=== PATIENT | male | born 1940 | race Caucasian/White ===

== ENCOUNTER 2021-08-03 09:38 | Inpatient (IN) ==
[2021-08-03] MEDS ORDERED: Naloxone 0.4 MG/ML INJ IVP PRN (13:28)
[2021-08-03] MEDS ORDERED: Perflutren Lipid Microsphere 1.3 ML in 0.9 % Sodium Chloride 8.7 ML IVP PRN (13:28)
[2021-08-03] MEDS ORDERED: Melatonin 3 MG TABLET PO PRN (13:28)
[2021-08-03] MEDS ORDERED: *HR* Atropine Sulfate 1 MG/10 ML SYRINGE IVP PRN (14:42)
[2021-08-03 15:12] LABS: Basophils % 0.2 %; Eosinophils % 0.1 %; Hematocrit 45.4 % (37.5-50.1); Hemoglobin 14.2 g/dL (12.9-16.9); Immature Granulocytes % 0.5 % (0-4); Lymphocytes # 1.1 K/mcL (0.6-4.6); Lymphocytes % 5.7 %; Mean Corpuscular HGB Conc 31.3 g/dL (31.6-35.5); Mean Corpuscular Hemoglobin 28.1 pg (28.0-33.3); Mean Corpuscular Volume 89.7 fL (83.0-100.0); Mean Platelet Volume 10.2 fL (9.4-12.4); Monocytes # 1.2 K/mcL (0.0-1.3); Platelet Count 230 K/mcL (140-400); Red Blood Count 5.06 M/mcL (4.19-5.50); Red Cell Distribution Width 14.1 % (11.5-14.5); Segmented Neutrophils % 87.5 %; White Blood Count 19.4 K/mcL (4.3-11.1)
[2021-08-03 15:14] LABS: Bacteria,Urine Few per hpf (None-Few); Bilirubin,Urine Small (Negative); Blood,Urine Moderate (Negative); Clarity,Urine Turbid (Clear); Color,Urine Yellow (Yellow); Glucose,Urine (UA) Normal (Normal); Hyaline Casts,Urine Few per lpf (None Seen); Ketones,Urine Negative (Negative); Leukocyte Esterase,Urine Negative (Negative); Mucus,Urine Few per lpf (None-Few); Nitrite,Urine Negative (Negative); PH,Urine 5.5 pH Units (5.0-8.0); Protein,Urine Trace mg/dL (Neg-Trace); RBC,Urine 30-50 per hpf (0-3); Specific Gravity,Urine 1.023 (1.010-1.025)
[2021-08-03 15:21] LABS: INR 1.7
[2021-08-03 15:24] LABS: Activated Partial Thrombo Time 39.1 Seconds (26.0-36.0)
[2021-08-03 15:32] LABS: Calcium 8.9 mg/dL (8.6-10.3); Chol/HDL Ratio 4.1 (0-4.9); Magnesium 2.4 mg/dL (1.6-2.6); Phosphorous 3.5 mg/dL (2.7-4.5); Potassium 3.6 mEq/L (3.5-5.1); Troponin I 0.05 ng/mL (< 0.04)
[2021-08-03 16:39] LABS: Sodium, Urine 49.4 mEq/L
[2021-08-03] MEDS ORDERED: Dextrose Gel 15 GM/37.5 ML TUBE PO PRN ×2 (17:19)
[2021-08-03] MEDS ORDERED: D5% in Water 1,000 ML IVC PRN (17:19)
[2021-08-03] MEDS ORDERED: *HR* Dextrose 50 % in Water (Syg) 50 ML SYRINGE IVP PRN (17:19)
[2021-08-03] MEDS ORDERED: *HR* Heparin 5,000 UNIT/ML VIAL SQ SCH (17:30)
[2021-08-03] MEDS ORDERED: *HR* Heparin 5,000 UNIT/ML VIAL IVP PRN (17:34)
[2021-08-03] MEDS ORDERED: *HR* Heparin 5,000 UNIT/ML VIAL IVP ONE (17:34)
[2021-08-03] MEDS: Heparin 25,000UNIT/250ML 1/2NS 25,000 UNIT/250 ML IV.SOLN IVC SCH (18:17)
[2021-08-04 04:48] LABS: Albumin 2.7 g/dL (3.5-5.7); Albumin/Globulin Ratio 0.9 (1.1-2.2); Bilirubin,Direct 3.5 mg/dL (0.0-0.2); Bilirubin,Total 5.5 mg/dL (0.3-1.0); Globulin 3.1 g/dL (2.4-3.5); Total Protein 5.8 g/dL (6.4-8.9)
[2021-08-04] MEDS: Insulin LISPRO 300 UNITS/3 ML VIAL SUBQ SCH ×3 (08:00→17:43)
[2021-08-04 08:40] LABS: A.calcoaceticus-baumannii cplx Not Detected (Not Detect); Bacteroides fragilis by PCR Not Detected (Not Detect); CTX-M ESBL Gene Not Detected (Not Detect); Enterococcus faecalis by PCR Not Detected (Not Detect); Enterococcus faecium by PCR Not Detected (Not Detect); IMP Carbapenem-Resist Gene Not Detected (Not Detect); NDM Carbapenem-Resist Gene Not Detected (Not Detect); OXA-48-like Carbap-Resist Gene Not Detected (Not Detect); Staph epidermidis by PCR Not Detected (Not Detect); Staph lugdunensis by PCR Not Detected (Not Detect); Staphylococcus aureus by PCR Not Detected (Not Detect); Staphylococcus by PCR Not Detected (Not Detect); Streptococcus agalactiae(B)PCR Not Detected (Not Detect); Streptococcus by PCR Not Detected (Not Detect); Streptococcus pneumoniae PCR Not Detected (Not Detect); Streptococcus pyogenes (A) PCR Not Detected (Not Detect); VIM Carbapenem-Resist Gene Not Detected (Not Detect); blaKPC Carbapenem-Resist Gene Not Detected (Not Detect); mcr-1 Colistin-Resist Gene Not Detected (Not Detect)
[2021-08-04 08:41] LABS: Candida albicans by PCR Not Detected (Not Detect); Candida auris by PCR Not Detected (Not Detect); Candida glabrata by PCR Not Detected (Not Detect); Candida krusei by PCR Not Detected (Not Detect); Candida parapsilosis by PCR Not Detected (Not Detect); Candida tropicalis by PCR Not Detected (Not Detect); Crypto. neoformans/gattii PCR Not Detected (Not Detect); Enterobacter cloacae Cmplx PCR Not Detected (Not Detect); Escherichia coli by PCR DETECTED (Not Detect); Klebs. pneumoniae group by PCR Not Detected (Not Detect); Klebsiella aerogenes by PCR Not Detected (Not Detect); Klebsiella oxytoca by PCR Not Detected (Not Detect); Proteus by PCR Not Detected (Not Detect); Pseudomonas aeruginosa by PCR Not Detected (Not Detect); Salmonella species by PCR Not Detected (Not Detect); Serratia marcescens by PCR Not Detected (Not Detect); Stenotrophomonas maltophilia Not Detected (Not Detect)
[2021-08-04] MEDS ORDERED: Cefepime HCl 2,000 MG in 0.9 % Sodium Chloride 10 ML IVPB SCH (10:00)
[2021-08-04] MEDS: *HR* Heparin 5,000 UNIT/ML VIAL IVP PRN ×3 (11:24→23:02)
[2021-08-04 15:01] LABS: Basophils % 0.1 %; Eosinophils % 0.1 %; Hematocrit 42.5 % (37.5-50.1); Hemoglobin 13.5 g/dL (12.9-16.9); Immature Granulocytes % 0.7 % (0-4); Lymphocytes # 1.6 K/mcL (0.6-4.6); Mean Corpuscular HGB Conc 31.8 g/dL (31.6-35.5); Mean Corpuscular Hemoglobin 28.5 pg (28.0-33.3); Mean Corpuscular Volume 89.9 fL (83.0-100.0); Mean Platelet Volume 10.5 fL (9.4-12.4); Monocytes # 1.3 K/mcL (0.0-1.3); Monocytes % 6.6 %; Neutrophils # 16.4 K/mcL (1.6-8.9); Platelet Count 203 K/mcL (140-400); Red Blood Count 4.73 M/mcL (4.19-5.50); Red Cell Distribution Width 14.5 % (11.5-14.5); Segmented Neutrophils % 84.5 %; White Blood Count 19.4 K/mcL (4.3-11.1)
[2021-08-04 15:06] LABS: Estimated Average Glucose 151 mg/dl; Hemoglobin A1C 6.9 %
[2021-08-04 15:21] LABS: Calcium 8.7 mg/dL (8.6-10.3); Potassium 4.3 mEq/L (3.5-5.1)
[2021-08-04] MEDS: allopurinoL 300 MG TABLET PO SCH (15:45)
[2021-08-04] MEDS: Piperacillin/Tazobactam 3.375 GM in 0.9 % Sodium Chloride Mini Bag 100 ML IVPB SCH ×2 (15:46→23:02)
[2021-08-04 20:36] LABS: Heparin anti-factor XA UFH 0.12 IU/mL (0.30-0.70); INR 2.4; Prothrombin Time 26.4 Seconds (9.4-12.1)
[2021-08-05 03:14] LABS: VBG Ionized Calcium 1.12 mmol/L (1.15-1.35)
[2021-08-05 03:17] LABS: Basophils % 0.2 %; Eosinophils % 0.1 %; Hematocrit 40.8 % (37.5-50.1); Hemoglobin 12.9 g/dL (12.9-16.9); Immature Granulocytes % 0.7 % (0-4); Lymphocytes # 1.3 K/mcL (0.6-4.6); Lymphocytes % 6.8 %; Mean Corpuscular HGB Conc 31.6 g/dL (31.6-35.5); Mean Corpuscular Hemoglobin 28.4 pg (28.0-33.3); Mean Corpuscular Volume 89.7 fL (83.0-100.0); Mean Platelet Volume 10.3 fL (9.4-12.4); Monocytes # 1.4 K/mcL (0.0-1.3); Monocytes % 7.5 %; Platelet Count 192 K/mcL (140-400); Red Blood Count 4.55 M/mcL (4.19-5.50); Red Cell Distribution Width 14.5 % (11.5-14.5); Segmented Neutrophils % 84.7 %; White Blood Count 18.8 K/mcL (4.3-11.1)
[2021-08-05 03:25] LABS: Albumin 2.5 g/dL (3.5-5.7); Albumin/Globulin Ratio 0.8 (1.1-2.2); Bilirubin,Direct 3.6 mg/dL (0.0-0.2); Bilirubin,Indirect 1.8 mg/dL (0.0-1.0); Bilirubin,Total 5.4 mg/dL (0.3-1.0); Calcium 8.4 mg/dL (8.6-10.3); Globulin 3.2 g/dL (2.4-3.5); Magnesium 2.2 mg/dL (1.6-2.6); Potassium 4.1 mEq/L (3.5-5.1); Total Protein 5.7 g/dL (6.4-8.9)
[2021-08-05] MEDS: Heparin 25,000UNIT/250ML 1/2NS 25,000 UNIT/250 ML IV.SOLN IVC SCH (03:34)
[2021-08-05] MEDS: Piperacillin/Tazobactam 3.375 GM in 0.9 % Sodium Chloride Mini Bag 100 ML IVPB SCH ×2 (07:38→17:46)
[2021-08-05] MEDS: allopurinoL 300 MG TABLET PO SCH (07:38)
[2021-08-05] MEDS: Insulin LISPRO 300 UNITS/3 ML VIAL SUBQ SCH ×3 (08:00→17:20)
[2021-08-05] MEDS: hydrALAZINE 25 MG TABLET PO SCH ×2 (10:21→17:43)
[2021-08-05] MEDS ORDERED: *HR* Etomidate 40 MG/20 ML VIAL IVP ONE (14:24)
[2021-08-05] MEDS ORDERED: *HR* FentaNYL (PF) 100 MCG/2 ML VIAL ONE (14:25)
[2021-08-05] MEDS ORDERED: Lidocaine -MPF 2% 2 ML VIAL ONE (14:26)
[2021-08-05] MEDS ORDERED: Lidocaine HCL 4 ML Topical Solution (Laryng-O-Jet Kit Sterile Pak) TP ONE (14:37)
[2021-08-05] MEDS ORDERED: EPHEDrine 50 MG/ML VIAL ONE (15:00)
[2021-08-06] MEDS: Piperacillin/Tazobactam 3.375 GM in 0.9 % Sodium Chloride Mini Bag 100 ML IVPB SCH ×4 (00:19→23:43)
[2021-08-06] MEDS: hydrALAZINE 25 MG TABLET PO SCH ×4 (00:20→23:44)
[2021-08-06] MEDS: Heparin 25,000UNIT/250ML 1/2NS 25,000 UNIT/250 ML IV.SOLN IVC SCH ×2 (00:20→05:27)
[2021-08-06 01:00] LABS: Basophils % 0.2 %; Eosinophils % 0.2 %; Hematocrit 42.1 % (37.5-50.1); Hemoglobin 13.2 g/dL (12.9-16.9); Immature Granulocytes % 0.4 % (0-4); Lymphocytes # 1.8 K/mcL (0.6-4.6); Lymphocytes % 14.4 %; Mean Corpuscular HGB Conc 31.4 g/dL (31.6-35.5); Mean Corpuscular Hemoglobin 28.1 pg (28.0-33.3); Mean Corpuscular Volume 89.8 fL (83.0-100.0); Mean Platelet Volume 10.6 fL (9.4-12.4); Monocytes % 8.1 %; Neutrophils # 9.3 K/mcL (1.6-8.9); Platelet Count 200 K/mcL (140-400); Red Blood Count 4.69 M/mcL (4.19-5.50); Red Cell Distribution Width 14.6 % (11.5-14.5); Segmented Neutrophils % 76.7 %; White Blood Count 12.1 K/mcL (4.3-11.1)
[2021-08-06 02:15] LABS: Alanine Aminotransferase 60 Units/L (7-52); Albumin 2.5 g/dL (3.5-5.7); Albumin/Globulin Ratio 0.8 (1.1-2.2); Alkaline Phosphatase 344 Units/L (34-104); Aspartate Amino Transferase 48 Units/L (13-39); BUN/Creatinine Ratio 19 (6-26); Bilirubin,Total 4.1 mg/dL (0.3-1.0); Blood Urea Nitrogen 26 mg/dL (8-23); Calcium 8.5 mg/dL (8.6-10.3); Carbon Dioxide 29 mEq/L (23-29); Chloride 97 mEq/L (98-107); Globulin 3.2 g/dL (2.4-3.5); Glucose 95 mg/dL (70-105); Magnesium 2.2 mg/dL (1.6-2.6); Osmolality,Calculated 285 (280-300); Potassium 3.8 mEq/L (3.5-5.1); Sodium 135 mEq/L (136-145); Total Protein 5.7 g/dL (6.4-8.9); eGFR For African Americans > 60 (> 60); eGFR For Non-African Americans 51 (> 60)
[2021-08-06] MEDS: *HR* Heparin 5,000 UNIT/ML VIAL IVP PRN (02:19)
[2021-08-06] MEDS: Insulin LISPRO 300 UNITS/3 ML VIAL SUBQ SCH ×3 (08:01→16:50)
[2021-08-06] MEDS: allopurinoL 300 MG TABLET PO SCH (08:29)
[2021-08-07] MEDS ORDERED: *HR* HYDROcodone/Acet 7.5/325 mg TABLET PO ONE ×2 (01:23→21:59)
[2021-08-07 03:25] LABS: BUN/Creatinine Ratio 25 (6-26); Blood Urea Nitrogen 29 mg/dL (8-23); Calcium 8.4 mg/dL (8.6-10.3); Carbon Dioxide 26 mEq/L (23-29); Chloride 99 mEq/L (98-107); Glucose 92 mg/dL (70-105); Magnesium 2.2 mg/dL (1.6-2.6); Osmolality,Calculated 283 (280-300); Phosphorous 1.9 mg/dL (2.7-4.5); Sodium 134 mEq/L (136-145); eGFR For African Americans > 60 (> 60); eGFR For Non-African Americans > 60 (> 60)
[2021-08-07] MEDS: Heparin 25,000UNIT/250ML 1/2NS 25,000 UNIT/250 ML IV.SOLN IVC SCH (05:15)
[2021-08-07 06:30] LABS: Heparin anti-factor XA UFH < 0.04 IU/mL (0.30-0.70); INR 2.1; Prothrombin Time 23.5 Seconds (9.4-12.1)
[2021-08-07] MEDS: *HR* Heparin 5,000 UNIT/ML VIAL IVP PRN (07:00)
[2021-08-07] MEDS: Piperacillin/Tazobactam 3.375 GM in 0.9 % Sodium Chloride Mini Bag 100 ML IVPB SCH (09:12)
[2021-08-07] MEDS: Insulin LISPRO 300 UNITS/3 ML VIAL SUBQ SCH ×3 (09:13→18:26)
[2021-08-07] MEDS: cefTRIAXone 2,000 MG in 0.9 % Sodium Chloride 20 ML IVP SCH (09:18)
[2021-08-07] MEDS: Calcium Gluconate 1gm/50mL 1 GM/50 ML BAG IVPB SCH ×2 (09:18→10:28)
[2021-08-07] MEDS: allopurinoL 300 MG TABLET PO SCH ×2 (09:19→10:05)
[2021-08-07] MEDS: hydrALAZINE 25 MG TABLET PO SCH ×2 (10:05→18:25)
[2021-08-07] MEDS ORDERED: Acetaminophen 325 MG TABLET PO PRN (10:14)
[2021-08-07] MEDS: Aspirin Enteric Coated 81 MG Tablet PO SCH (15:27)
[2021-08-08] MEDS: Heparin 25,000UNIT/250ML 1/2NS 25,000 UNIT/250 ML IV.SOLN IVC SCH ×2 (00:05→21:33)
[2021-08-08] MEDS: hydrALAZINE 25 MG TABLET PO SCH ×4 (01:16→23:55)
[2021-08-08 03:29] LABS: VBG Ionized Calcium 1.18 mmol/L (1.15-1.35)
[2021-08-08 03:37] LABS: Basophils # 0.1 K/mcL (0.0-0.2); Basophils % 0.6 %; Eosinophils # 0.1 K/mcL (0.0-0.6); Eosinophils % 1.2 %; Hematocrit 37.4 % (37.5-50.1); Immature Granulocytes % 0.7 % (0-4); Lymphocytes # 2.4 K/mcL (0.6-4.6); Lymphocytes % 27.4 %; Mean Corpuscular Hemoglobin 27.9 pg (28.0-33.3); Mean Corpuscular Volume 89.9 fL (83.0-100.0); Mean Platelet Volume 10.6 fL (9.4-12.4); Monocytes # 0.9 K/mcL (0.0-1.3); Monocytes % 10.7 %; Neutrophils # 5.1 K/mcL (1.6-8.9); Platelet Count 181 K/mcL (140-400); Red Blood Count 4.16 M/mcL (4.19-5.50); Red Cell Distribution Width 14.6 % (11.5-14.5); Segmented Neutrophils % 59.4 %; White Blood Count 8.6 K/mcL (4.3-11.1)
[2021-08-08 03:48] LABS: Hemoglobin 11.6 g/dL (12.9-16.9)
[2021-08-08 03:50] LABS: Alanine Aminotransferase 51 Units/L (7-52); Albumin 2.5 g/dL (3.5-5.7); Albumin/Globulin Ratio 0.9 (1.1-2.2); Alkaline Phosphatase 294 Units/L (34-104); Aspartate Amino Transferase 54 Units/L (13-39); BUN/Creatinine Ratio 27 (6-26); Bilirubin,Indirect 0.8 mg/dL (0.0-1.0); Bilirubin,Total 1.8 mg/dL (0.3-1.0); Blood Urea Nitrogen 29 mg/dL (8-23); Calcium 8.4 mg/dL (8.6-10.3); Carbon Dioxide 31 mEq/L (23-29); Chloride 101 mEq/L (98-107); Globulin 2.8 g/dL (2.4-3.5); Glucose 101 mg/dL (70-105); Magnesium 2.1 mg/dL (1.6-2.6); Osmolality,Calculated 290 (280-300); Phosphorous 3.4 mg/dL (2.7-4.5); Potassium 3.6 mEq/L (3.5-5.1); Sodium 137 mEq/L (136-145); Total Protein 5.3 g/dL (6.4-8.9); eGFR For African Americans > 60 (> 60); eGFR For Non-African Americans > 60 (> 60)
[2021-08-08 04:01] LABS: Heparin anti-factor XA UFH 0.49 IU/mL (0.30-0.70)
[2021-08-08] MEDS: cefTRIAXone 2,000 MG in 0.9 % Sodium Chloride 20 ML IVP SCH (08:04)
[2021-08-08] MEDS: allopurinoL 300 MG TABLET PO SCH (08:04)
[2021-08-08] MEDS: Aspirin Enteric Coated 81 MG Tablet PO SCH (08:04)
[2021-08-08] MEDS: Insulin LISPRO 300 UNITS/3 ML VIAL SUBQ SCH ×3 (08:05→16:13)
[2021-08-08 08:45] LABS: INR 2.2; Prothrombin Time 24.1 Seconds (9.4-12.1)
[2021-08-09 02:55] LABS: Basophils # 0.1 K/mcL (0.0-0.2); Basophils % 0.6 %; Eosinophils # 0.1 K/mcL (0.0-0.6); Eosinophils % 1.1 %; Hematocrit 36.7 % (37.5-50.1); Hemoglobin 11.4 g/dL (12.9-16.9); Immature Granulocytes % 1.1 % (0-4); Lymphocytes # 2.3 K/mcL (0.6-4.6); Lymphocytes % 26.5 %; Mean Corpuscular HGB Conc 31.1 g/dL (31.6-35.5); Mean Corpuscular Hemoglobin 28.6 pg (28.0-33.3); Mean Platelet Volume 10.5 fL (9.4-12.4); Monocytes # 0.9 K/mcL (0.0-1.3); Monocytes % 9.8 %; Neutrophils # 5.4 K/mcL (1.6-8.9); Platelet Count 171 K/mcL (140-400); Red Blood Count 3.99 M/mcL (4.19-5.50); Red Cell Distribution Width 14.6 % (11.5-14.5); Segmented Neutrophils % 60.9 %; White Blood Count 8.8 K/mcL (4.3-11.1)
[2021-08-09 03:03] LABS: VBG Ionized Calcium 1.21 mmol/L (1.15-1.35)
[2021-08-09 03:03] LABS: INR 1.4; Prothrombin Time 15.8 Seconds (9.4-12.1)
[2021-08-09 03:48] LABS: BUN/Creatinine Ratio 29 (6-26); Blood Urea Nitrogen 29 mg/dL (8-23); Calcium 8.4 mg/dL (8.6-10.3); Carbon Dioxide 32 mEq/L (23-29); Chloride 100 mEq/L (98-107); Glucose 113 mg/dL (70-105); Magnesium 2.1 mg/dL (1.6-2.6); Osmolality,Calculated 289 (280-300); Phosphorous 1.8 mg/dL (2.7-4.5); Potassium 4.1 mEq/L (3.5-5.1); Sodium 136 mEq/L (136-145); eGFR For African Americans > 60 (> 60); eGFR For Non-African Americans > 60 (> 60)
[2021-08-09 04:51] LABS: Bilirubin,Urine Negative (Negative); Blood,Urine Large (Negative); Budding Yeast,Urine Few per hpf (None Seen); Clarity,Urine Clear (Clear); Color,Urine Yellow (Yellow); Glucose,Urine (UA) Normal (Normal); Ketones,Urine Trace mg/dL (Negative); Leukocyte Esterase,Urine Negative (Negative); Nitrite,Urine Negative (Negative); Protein,Urine 70 mg/dL (Neg-Trace); RBC,Urine TNTC per hpf (0-3); Specific Gravity,Urine 1.023 (1.010-1.025); Urobilinogen,Urine Normal (Normal); WBC,Urine 50-100 per hpf (0-3)
[2021-08-09] MEDS ORDERED: *HR* HYDROcodone/Acet 7.5/325 mg TABLET PO ONE (05:39)
[2021-08-09] MEDS: Insulin LISPRO 300 UNITS/3 ML VIAL SUBQ SCH ×3 (08:30→17:20)
[2021-08-09] MEDS: Aspirin Enteric Coated 81 MG Tablet PO SCH (09:59)
[2021-08-09] MEDS: allopurinoL 300 MG TABLET PO SCH (09:59)
[2021-08-09] MEDS: cefTRIAXone 2,000 MG in 0.9 % Sodium Chloride 20 ML IVP SCH (09:59)
[2021-08-09] MEDS: hydrALAZINE 25 MG TABLET PO SCH ×2 (10:01→17:28)
[2021-08-09 16:58] LABS: Hematocrit 33.8 % (37.5-50.1); Hemoglobin 10.4 g/dL (12.9-16.9)
[2021-08-09] MEDS ORDERED: 0.9 % Sodium Chloride 1,000 ML IVC SCH (17:15)
[2021-08-10] MEDS: hydrALAZINE 25 MG TABLET PO SCH ×4 (00:24→23:55)
[2021-08-10 00:50] LABS: Hematocrit 32.4 % (37.5-50.1); Hemoglobin 9.9 g/dL (12.9-16.9)
[2021-08-10 01:08] LABS: Blood Urea Nitrogen 26 mg/dL (8-23); Calcium 8.1 mg/dL (8.6-10.3); Carbon Dioxide 33 mEq/L (23-29); Chloride 100 mEq/L (98-107); Glucose 169 mg/dL (70-105); Magnesium 1.9 mg/dL (1.6-2.6); Osmolality,Calculated 289 (280-300); Phosphorous 1.1 mg/dL (2.7-4.5); Potassium 4.4 mEq/L (3.5-5.1); Sodium 135 mEq/L (136-145)
[2021-08-10 01:10] LABS: BUN/Creatinine Ratio 28 (6-26); eGFR For African Americans > 60 (> 60); eGFR For Non-African Americans > 60 (> 60)
[2021-08-10 02:53] LABS: Basophils % 0.3 %; Eosinophils # 0.1 K/mcL (0.0-0.6); Eosinophils % 0.8 %; Hematocrit 32.3 % (37.5-50.1); Hemoglobin 9.7 g/dL (12.9-16.9); Immature Granulocytes % 1.3 % (0-4); Lymphocytes # 2.3 K/mcL (0.6-4.6); Lymphocytes % 21.3 %; Mean Corpuscular Hemoglobin 27.8 pg (28.0-33.3); Mean Corpuscular Volume 92.6 fL (83.0-100.0); Mean Platelet Volume 10.4 fL (9.4-12.4); Monocytes % 8.9 %; Neutrophils # 7.4 K/mcL (1.6-8.9); Platelet Count 173 K/mcL (140-400); Red Blood Count 3.49 M/mcL (4.19-5.50); Red Cell Distribution Width 14.7 % (11.5-14.5); Segmented Neutrophils % 67.4 %; White Blood Count 10.9 K/mcL (4.3-11.1)
[2021-08-10 03:01] LABS: INR 1.2; Prothrombin Time 13.7 Seconds (9.4-12.1)
[2021-08-10] MEDS: Insulin LISPRO 300 UNITS/3 ML VIAL SUBQ SCH ×3 (07:19→16:59)
[2021-08-10] MEDS: allopurinoL 300 MG TABLET PO SCH (07:32)
[2021-08-10] MEDS: Aspirin Enteric Coated 81 MG Tablet PO SCH (07:32)
[2021-08-10] MEDS: cefTRIAXone 2,000 MG in 0.9 % Sodium Chloride 20 ML IVP SCH (07:32)
[2021-08-10] MEDS ORDERED: *HR* Heparin 5,000 UNIT/ML VIAL IVP ONE (13:28)
[2021-08-10] MEDS ORDERED: *HR* Heparin 5,000 UNIT/ML VIAL IVP PRN ×2 (13:28)
[2021-08-10] MEDS ORDERED: MetroNIDAZOLE 500 MG/100 ML 500 MG/100 ML BAG IVPB SCH (16:00)
[2021-08-10] MEDS: Heparin 25,000UNIT/250ML 1/2NS 25,000 UNIT/250 ML IV.SOLN IVC SCH (17:00)
[2021-08-11 06:13] LABS: Hematocrit 31.3 % (37.5-50.1); Hemoglobin 9.8 g/dL (12.9-16.9); Mean Corpuscular HGB Conc 31.3 g/dL (31.6-35.5); Mean Corpuscular Hemoglobin 28.3 pg (28.0-33.3); Mean Corpuscular Volume 90.5 fL (83.0-100.0); Mean Platelet Volume 10.2 fL (9.4-12.4); Platelet Count 171 K/mcL (140-400); Red Blood Count 3.46 M/mcL (4.19-5.50); White Blood Count 9.5 K/mcL (4.3-11.1)
[2021-08-11 06:13] LABS: VBG Ionized Calcium 1.21 mmol/L (1.15-1.35)
[2021-08-11 06:21] LABS: Heparin anti-factor XA UFH 0.37 IU/mL (0.30-0.70); INR 1.2; Prothrombin Time 13.2 Seconds (9.4-12.1)
[2021-08-11 06:23] LABS: Activated Partial Thrombo Time 85.5 Seconds (26.0-36.0)
[2021-08-11 06:48] LABS: Alanine Aminotransferase 68 Units/L (7-52); Albumin 2.5 g/dL (3.5-5.7); Alkaline Phosphatase 277 Units/L (34-104); Aspartate Amino Transferase 62 Units/L (13-39); BUN/Creatinine Ratio 21 (6-26); Bilirubin,Direct 0.5 mg/dL (0.0-0.2); Bilirubin,Indirect 0.7 mg/dL (0.0-1.0); Bilirubin,Total 1.2 mg/dL (0.3-1.0); Blood Urea Nitrogen 18 mg/dL (8-23); Calcium 8.4 mg/dL (8.6-10.3); Carbon Dioxide 33 mEq/L (23-29); Chloride 98 mEq/L (98-107); Globulin 2.6 g/dL (2.4-3.5); Glucose 106 mg/dL (70-105); Magnesium 2.2 mg/dL (1.6-2.6); Osmolality,Calculated 282 (280-300); Phosphorous 2.5 mg/dL (2.7-4.5); Potassium 4.3 mEq/L (3.5-5.1); Sodium 135 mEq/L (136-145); Total Protein 5.1 g/dL (6.4-8.9); eGFR For African Americans > 60 (> 60); eGFR For Non-African Americans > 60 (> 60)
[2021-08-11] MEDS: Insulin LISPRO 300 UNITS/3 ML VIAL SUBQ SCH ×3 (07:33→16:47)
[2021-08-11] MEDS: Aspirin Enteric Coated 81 MG Tablet PO SCH (09:13)
[2021-08-11] MEDS: allopurinoL 300 MG TABLET PO SCH (09:13)
[2021-08-11] MEDS: hydrALAZINE 25 MG TABLET PO SCH ×2 (09:13→17:08)
[2021-08-11] MEDS ORDERED: 0.9 % Sodium Chloride 2,000 ML ONE (12:34)
[2021-08-11] MEDS ORDERED: *HR* Heparin 10,000 UNIT/10 ML VIAL ONE (12:34)
[2021-08-11] MEDS ORDERED: Iopamidol - 370 200 ML INFUS..BTL ONE (12:34)
[2021-08-11] MEDS ORDERED: Heparin 1,000 UNITS/500 mL 500 ML ONE (12:34)
[2021-08-11] MEDS ORDERED: Nitroglycerin 1,000 MCG/5 ML VIAL IV ONE (12:34)
[2021-08-11] MEDS ORDERED: *HR* FentaNYL (PF) 100 MCG/2 ML VIAL ONE (12:46)
[2021-08-11] MEDS ORDERED: *HR* Midazolam HCl 2 MG/2 ML VIAL ONE (12:46)
[2021-08-11] MEDS: Heparin 25,000UNIT/250ML 1/2NS 25,000 UNIT/250 ML IV.SOLN IVC SCH (17:32)
[2021-08-12] MEDS: hydrALAZINE 25 MG TABLET PO SCH ×2 (00:19→18:18)
[2021-08-12 04:29] LABS: Basophils % 0.3 %; Eosinophils # 0.2 K/mcL (0.0-0.6); Eosinophils % 1.5 %; Hematocrit 32.2 % (37.5-50.1); Hemoglobin 10.1 g/dL (12.9-16.9); Immature Granulocytes % 1.1 % (0-4); Lymphocytes # 2.3 K/mcL (0.6-4.6); Lymphocytes % 22.5 %; Mean Corpuscular HGB Conc 31.4 g/dL (31.6-35.5); Mean Corpuscular Hemoglobin 28.3 pg (28.0-33.3); Mean Corpuscular Volume 90.2 fL (83.0-100.0); Monocytes % 9.5 %; Neutrophils # 6.5 K/mcL (1.6-8.9); Platelet Count 182 K/mcL (140-400); Red Blood Count 3.57 M/mcL (4.19-5.50); Red Cell Distribution Width 15.3 % (11.5-14.5); Segmented Neutrophils % 65.1 %
[2021-08-12 04:34] LABS: VBG Ionized Calcium 1.15 mmol/L (1.15-1.35)
[2021-08-12 04:40] LABS: INR 1.2; Prothrombin Time 13.5 Seconds (9.4-12.1)
[2021-08-12 04:45] LABS: Alanine Aminotransferase 75 Units/L (7-52); Albumin 2.5 g/dL (3.5-5.7); Albumin/Globulin Ratio 0.8 (1.1-2.2); Alkaline Phosphatase 266 Units/L (34-104); Aspartate Amino Transferase 66 Units/L (13-39); BUN/Creatinine Ratio 15 (6-26); Bilirubin,Direct 0.5 mg/dL (0.0-0.2); Bilirubin,Indirect 0.7 mg/dL (0.0-1.0); Bilirubin,Total 1.2 mg/dL (0.3-1.0); Blood Urea Nitrogen 14 mg/dL (8-23); Calcium 8.4 mg/dL (8.6-10.3); Carbon Dioxide 29 mEq/L (23-29); Chloride 99 mEq/L (98-107); Glucose 94 mg/dL (70-105); Osmolality,Calculated 278 (280-300); Phosphorous 3.8 mg/dL (2.7-4.5); Potassium 4.4 mEq/L (3.5-5.1); Sodium 134 mEq/L (136-145); Total Protein 5.5 g/dL (6.4-8.9); eGFR For African Americans > 60 (> 60); eGFR For Non-African Americans > 60 (> 60)
[2021-08-12] MEDS: allopurinoL 300 MG TABLET PO SCH (08:57)
[2021-08-12] MEDS: Aspirin Enteric Coated 81 MG Tablet PO SCH (08:57)
[2021-08-12] MEDS: Insulin LISPRO 300 UNITS/3 ML VIAL SUBQ SCH ×3 (08:57→16:58)
[2021-08-12 16:39] LABS: Adenovirus Not Detected (Not Detect); Bordetella Pertussis Not Detected (Not Detect); Chlamydophila pneumoniae Not Detected (Not Detect); Coronavirus 229E Not Detected (Not Detect); Coronavirus HKU1 Not Detected (Not Detect); Coronavirus NL63 Not Detected (Not Detect); Coronavirus OC43 Not Detected (Not Detect); Human Metapneumovirus Not Detected (Not Detect); Human Rhinovirus/Enterovirus Not Detected (Not Detect); Influenza A Subtype 2009 H1 Not Detected (Not Detect); Influenza B Not Detected (Not Detect); Mycoplasma pneumoniae Not Detected (Not Detect); Parainfluenza Virus 1 Not Detected (Not Detect); Parainfluenza Virus 2 Not Detected (Not Detect); Parainfluenza Virus 3 Not Detected (Not Detect); Parainfluenza Virus 4 Not Detected (Not Detect); Respiratory Syncytial Virus Not Detected (Not Detect); SARS-CoV-2 Not Detected (Not Detect)
[2021-08-12] MEDS ORDERED: *HR* Warfarin 2 MG TABLET PO ONE (18:00)
[2021-08-12] MEDS ORDERED: Warfarin perPT PO PRN (18:00)
[2021-08-12 18:53] VITALS: BP 134/56; PULSE 60; TEMP 97.9; O2SAT 96
== END 2021-08-12 20:00 | disposition other institution (70) | DRG 445 ==
LOC: 2NENU → SUATTDRO 12:24 → 2NNU 14:00 → SUATTDRO 08-04 18:39 → 2ANU 08-06 14:09
PROVIDERS: ADMIT Hospitalist; ATTEND Internal Medicine

== ENCOUNTER 2021-08-17 17:02 | Observation (INO) ==
[2021-08-17] MEDS ORDERED: Naloxone 0.4 MG/ML INJ IVP PRN (22:16)
[2021-08-17] MEDS ORDERED: Melatonin 3 MG TABLET PO PRN (22:16)
[2021-08-17] MEDS ORDERED: Acetaminophen 325 MG TABLET PO PRN (22:16)
[2021-08-17] MEDS ORDERED: Ondansetron 4 MG/2 ML VIAL IVP PRN (22:16)
[2021-08-17 22:46] LABS: Hematocrit 29.7 % (37.5-50.1); Hemoglobin 9.3 g/dL (12.9-16.9); Mean Corpuscular HGB Conc 31.3 g/dL (31.6-35.5); Mean Corpuscular Hemoglobin 28.7 pg (28.0-33.3); Mean Corpuscular Volume 91.7 fL (83.0-100.0); Mean Platelet Volume 9.5 fL (9.4-12.4); Platelet Count 243 K/mcL (140-400); Red Blood Count 3.24 M/mcL (4.19-5.50); Red Cell Distribution Width 15.9 % (11.5-14.5)
[2021-08-18] MEDS ORDERED: Dextrose Gel 15 GM/37.5 ML TUBE PO PRN ×2 (01:14)
[2021-08-18] MEDS ORDERED: D5% in Water 1,000 ML IVC PRN (01:14)
[2021-08-18] MEDS ORDERED: *HR* Dextrose 50 % in Water (Syg) 50 ML SYRINGE IVP PRN (01:14)
[2021-08-18 04:28] LABS: Basophils # 0.1 K/mcL (0.0-0.2); Basophils % 0.6 %; Eosinophils # 0.2 K/mcL (0.0-0.6); Eosinophils % 1.6 %; Hematocrit 29.1 % (37.5-50.1); Hemoglobin 9.3 g/dL (12.9-16.9); Immature Granulocytes % 1.1 % (0-4); Lymphocytes # 3.2 K/mcL (0.6-4.6); Lymphocytes % 30.9 %; Mean Corpuscular Volume 90.7 fL (83.0-100.0); Mean Platelet Volume 9.9 fL (9.4-12.4); Monocytes % 9.7 %; Neutrophils # 5.8 K/mcL (1.6-8.9); Platelet Count 241 K/mcL (140-400); Red Blood Count 3.21 M/mcL (4.19-5.50); Red Cell Distribution Width 15.9 % (11.5-14.5); Segmented Neutrophils % 56.1 %; White Blood Count 10.4 K/mcL (4.3-11.1)
[2021-08-18 04:39] LABS: Alanine Aminotransferase 59 Units/L (7-52); Albumin 2.8 g/dL (3.5-5.7); Alkaline Phosphatase 196 Units/L (34-104); Aspartate Amino Transferase 54 Units/L (13-39); BUN/Creatinine Ratio 18 (6-26); Bilirubin,Total 0.9 mg/dL (0.3-1.0); Blood Urea Nitrogen 20 mg/dL (8-23); Calcium 8.5 mg/dL (8.6-10.3); Carbon Dioxide 30 mEq/L (23-29); Chloride 97 mEq/L (98-107); Globulin 2.7 g/dL (2.4-3.5); Glucose 98 mg/dL (70-105); Magnesium 1.9 mg/dL (1.6-2.6); Osmolality,Calculated 279 (280-300); Phosphorous 3.3 mg/dL (2.7-4.5); Sodium 133 mEq/L (136-145); Total Protein 5.5 g/dL (6.4-8.9); eGFR For African Americans > 60 (> 60); eGFR For Non-African Americans > 60 (> 60)
[2021-08-18 04:40] LABS: INR 1.2
[2021-08-18 04:46] LABS: Activated Partial Thrombo Time 32.6 Seconds (26.0-36.0)
[2021-08-18] MEDS: Insulin LISPRO 300 UNITS/3 ML VIAL SUBQ SCH ×3 (05:46→17:26)
[2021-08-18 11:59] LABS: Hematocrit 29.2 % (37.5-50.1); Hemoglobin 9.1 g/dL (12.9-16.9)
[2021-08-19] MEDS: Insulin LISPRO 300 UNITS/3 ML VIAL SUBQ SCH ×2 (01:13→05:30)
[2021-08-19 07:48] VITALS: BP 150/95; PULSE 95; TEMP 98.1; O2SAT 97
[2021-08-19 09:38] LABS: Hematocrit 33.5 % (37.5-50.1); Hemoglobin 10.4 g/dL (12.9-16.9)
== END 2021-08-19 11:13 | disposition home or self-care (01) ==
LOC: 3BNU → SUATTDRO 21:36
PROVIDERS: ADMIT Internal Medicine; ATTEND Internal Medicine